=== PATIENT | female | born 1955 | race Caucasian/White ===

== ENCOUNTER 2019-06-27 04:21 | Emergency (ER) | payer OTHER ==
[~2019-06-27] VITALS: Ht 165.1 cm; Wt 93.0 kg
[~2019-06-27 04:21] MED LIST: AMOX1TAB61 PO; TRAM-48 PO
--- NOTE | 2019-06-27 04:23 | PHYS DOC ---
Past History Past Medical History: No Pertinent History Past Surgical History: Other Alcohol Use: Rarely Drug Use: None Adult General Chief Complaint Chief Complaint: ".. I ve got this really bad pain here on side my nose..it is so bad ... I can't sleep...and I can not think of any reason for it...." HPI HPI Patient is a 64 year old female who presents with above hx and complaints of nose pain. Patient has not had any nasal congestion. Patient has not had any trauma to the nose . No history of recent travel or specific ill contacts. Patient is generally very healthy is not on any meds. Patient did have chickenpox as a child. Has not taking the shingles vaccine but has taken the pneumonia vaccine. Patient is recently retired and has had multiple vaccinations. Pain is exquisite or over the right side of her nose. There is s ome mild inflammation. Lite touching the skin, causes pain to the patient. Pt. normally follow with Dr. Wilson. Review of Systems Review of Systems Constitutional: Denies fever or chills [] Eyes: Denies change in visual acuity, redness, or eye pain [] HENT: Denies nasal congestion or sore throat [] Respiratory: Denies cough or shortness of breath [] Cardiovascular: No additional information not addressed in HPI [] GI: Denies abdominal pain, nausea, vomiting, bloody stools or diarrhea [] : Denies dysuria or hematuria [] Musculoskeletal: Denies back pain or joint pain [] Integument: Denies rash or skin lesions [. Patient]complaints of severe pain over the right side of nose Neurologic: Denies headache, focal weakness or sensory changes [] Endocrine: Denies polyuria or polydipsia [] All other systems were reviewed and found to be within normal limits, except as documented in this note. Family History Family History Noncontributory Current Medications Current Medications Takes no home meds Allergies Allergies Allergies Coded Allergies Type Severity Reaction Last Updated Verified No Known Drug Allergies 04/15/16 No Physical Exam Physical Exam Constitutional: Well developed, well nourished, moderate acute distress, non- toxic appearance. [] HENT: Normocephalic, atraumatic, bilateral external ears normal, oropharynx moist, no oral exudates, nose normal. []There is some slight increase in color of skin on the right side of nose. This area is extremely sensitive to touch. Burning/painful. Eyes: PERRLA, EOMI, conjunctiva normal, no discharge. [] Neck: Normal range of motion, no tenderness, supple, no stridor. [] Cardiovascular:Heart rate regular rhythm, no murmur [] Lungs & Thorax: Bilateral breath sounds equal at apex auscultation [] Abdomen: Bowel sounds normal, soft, no tenderness, no masses, no pulsatile masses. [] Skin: Warm, dry, no erythema, no rash. [] Back: No tenderness, no CVA tenderness. [] Extremities: No tenderness, no cyanosis, no clubbing, ROM intact, no edema. [] Neurologic: Alert and oriented X 3, normal motor function, normal sensory function, no focal deficits noted. [] Psychologic: Affect normal, judgement normal, mood normal. [] EKG EKG [] Radiology/Procedures Radiology/Procedures [] Course & Med Decision Making Course & Med Decision Making Pertinent Labs and Imaging studies reviewed. (See chart for details) Suspect this is early onset of shingles. However may be onset of a localized cellulitis- recently exposure to dirt removing supported ceilings tile. However due to the level of pain and discomfort but more likely diagnosis is shingles without visible lesion. Will start patient on Bactrim and Famciclovir. May take Tylenol and ibuprofen for pain. Marked pain may take Vicoprofen. May also use viscous lidocaine jelly to area pain. Patient follow-up primary care. Patient return if any concerns. Advised patient if she developed blisters she could be infectious. Impression: 1. Early onset of shingles 2. Possible localized cellulitis [] Dragon Disclaimer Dragon Disclaimer This electronic medical record was generated, in whole or in part, using a voice recognition dictation system. Departure Departure: Disposition: 01 HOME/RESIDENCE PRIOR TO ADM Condition: STABLE Referrals: HERIBERTO WILSON MD (PCP) Scripts Sulfamethoxazole/Trimethoprim (BACTRIM DS TABLET) 1 Each Tablet 1 TAB PO BID for cellitis for 7 Days, #14 TAB 0 Refills Prov: IRIS BRAXTON MD 06/27/19 Lidocaine HCl (Lidocaine HCl) 120 Gm Cream..g. 2 TANISHA TP QID for zoster for 30 Days, #120 GM 0 Refills Prov: IRIS BRAXTON MD 06/27/19 Famciclovir (FAMCICLOVIR) 500 Mg Tablet 500 MG PO TID for zoster for 7 Days, #21 TAB Prov: IRIS BRAXTON MD 06/27/19 Hydrocodone/Ibuprofen (HYDROCODONE-IBUPROFEN 7.5-200 ) 1 Each Tablet 1 TAB PO PRN Q6HRS PRN for PAIN, #30 TAB 0 Refills Prov: IRIS BRAXTON MD 06/27/19 Dragon Disclaimer This chart was dictated in whole or in part using Voice Recognition software in a busy, high-work load, and often noisy Emergency Department environment. It may contain unintended and wholly unrecognized errors or omissions. Dragon Disclaimer This chart was dictated in whole or in part using Voice Recognition software in a busy, high-work load, and often noisy Emergency Department environment. It may contain unintended and wholly unrecognized errors or omissions. IRIS BRAXTON MD Jun 27, 2019 04:23
[2019-06-27 04:26] VITALS: BP 128/78
[2019-06-27] MEDS ORDERED: LIDO120C7 TP (05:13)
[2019-06-27] MEDS ORDERED: SULF1TAB24 PO (05:13)
[2019-06-27] MEDS ORDERED: FAMC500T PO (05:13)
[2019-06-27] MEDS ORDERED: HYDR-1179 PO (05:13)
[2019-06-27] MEDS ORDERED: SMZ/TMP 800/160MG TABLET. PO ONE (05:30)
[2019-06-27] MEDS ORDERED: predniSONE 10 MG TABLET PO ONE (05:30)
[2019-06-27] MEDS ORDERED: LIDOCAINE 5% TOPICAL OINTMENT 35GM TUBE. TP ONE (05:30)
[2019-06-27] MEDS ORDERED: LIDOCAINE 2% VISCOUS 15 ML SOLUTION. ONE (05:31)
[2019-06-27] MEDS ORDERED: valACYclovir 500 MG TABLET. ONE (05:32)
[2019-06-27] MEDS ORDERED: valACYclovir 500 MG TABLET. PO ONE (06:00)
[2019-06-27] MEDS ORDERED: ACYCLOVIR 200 MG CAPSULE PO ONE (06:00)
[2019-06-27] MEDS ORDERED: LIDOCAINE 2% VISCOUS 15 ML SOLUTION. SWSW ONE (06:00)
== END 2019-06-27 05:56 | disposition home or self-care (01) ==
LOC: ER 04:21
DX: B02.9 Zoster without complications (principal); J34.89 Other specified disorders of nose and nasal sinuses
CPT/HCPCS: 99284; J7512